=== PATIENT | male | born 1970 | race African-American/Black ===

== ENCOUNTER 2017-05-10 14:28 | Emergency (ER) | payer OTHER ==
[~2017-05-10] VITALS: Ht 175.3 cm; Wt 109.1 kg
[2017-05-10 14:33] VITALS: BP 158/101; PULSE 74; RESP 18; O2SAT 97
--- NOTE | 2017-05-10 15:15 | ED.REPORT ---
HPI-General Illness Date of Service May 10, 2017 ED Provider: Andre Boyle MD Pt is a generally healthy 47 y/o male w/ a hx of HTN and gout presenting to the ED for a medication refill. The patient recently moved to [place] from [place] and therefore has been out of his medications for the past 20 days which are: Amlodipine 10 mg and Lisinopril 40 mg. He has been on these medications for 3 years. He is asymptomatic at current time and has been recently. The patient is also requesting gout medications Colchicine and Allopurinol because he recently had a gout flare-up of his left elbow which is now resolved and he would like medications if he were to have another flare-up. Nursing Notes Stated Complaint: MED REFILL Chief Complaint: General Complaint Nursing Notes Reviewed: Yes ([employer], meds not reconciled) Allergies: Coded Allergies: No Known Allergies (Unverified , 05/10/17) Scheduled Allopurinol (Allopurinol) 100 Mg Tablet 100 MG PO DAILY Amlodipine (Amlodipine) 10 Mg Tablet 10 MG PO DAILY Lisinopril (Lisinopril) 40 Mg Tablet 40 MG PO DAILY Scheduled PRN Colchicine (Colchicine) 0.6 Mg Tablet 0.6 MG PO DIRECTED PRN PRN gout At onset of gout flare: Take 2 tabs 1, then take 1 tab one hour later. Do not take any additional colchicine for the next 3 days General Time Seen by MD: 15:10 Chief Complaint Other (med refill) Hx Obtained From: Patient Arrived By: Walk-in Sudden in Onset?: No Onset Occurred: More than a week ago... (3 weeks) Symptom Duration: Since onset Severity: Current: No pain currently Severity: Maximum: No pain Recent Healthcare: No recent doctor visit, No recent hospitalization Similar Sx Previous: No Past Medical History Past Medical History HTN Gout Past Surgical History Denies Smoking History Never Smoker Social History Drug Use: Denies drug use Ambulatory Status Independent Review of Systems Asymptomatic Full Review of Systems Constitutional: Denies: Chills, Fever Respiratory: Denies: Non-productive cough, Shortness of breath Cardiovascular: Denies: Chest pain, Dyspnea on exertion GI: Denies: Abdominal pain, Nausea, Vomiting Neurologic: Denies: Headache, Lightheaded Complete sys rev & neg: except as marked. Physical Exam Vital Signs Vital Signs Date Time Temp Pulse Resp B/P Pulse Ox O2 Delivery O2 Flow Rate FiO2 05/10/17 14:33 35.9 74 18 158/101 97 Room Air Initial VS: Reviewed, Vital signs normal (HTN) Head / Eyes: Atraumatic, Normocephalic, PERRL ENT: Mucous membranes moist, Conjunctiva normal, No scleral icterus Neck: Supple, Full range of motion Respiratory: Breath sounds normal, Clear to auscultation, No respiratory distress Cardiovascular: Regular rate & rhythm, Heart sounds normal, Intact distal pulses Abdomen / GI: Soft, Non-tender Extremities: Vascular intact, Neuro intact, No swelling, No tenderness Skin: Warm, Dry, No cyanosis Neurologic: Alert, Oriented, Nonfocal Psychiatric: Mood/affect normal, Behavior normal, Normal thought content General/Constitutional: Awake, Alert, No acute distress, Cooperative, Not toxic appearing Re-Eval/Medical Decision Med Decision/Clinical Course This is a 47-year-old male presents with request for medication refill. Just moved to the area, he has been out of his blood pressure medications for the past 15 days, it is looking simply get a refill of them. He has no specific complaints. He would also like a refill of his gout medications as he just completed a resolution of a gout exacerbation, but he would like some allopurinol and colchicine as he occasionally has flareups. He has no additional complaints. She has been on these medications for years, with no difficulties. On his exam he is mildly hypertensive, but otherwise has a normal exam. I have written for medication refill of his medications. I have also provided referral to the local on-call PCP, and records indicate [facility]. Patient is discharged in stable condition Source of Hx: Old records (none in EMR) Time of Eval: 15:17 Re-Evaluation/Progress Note: Pt is grateful I am able to prescribe his medications. Differential Diagnosis: Positive: Medication refill, Negative: Abdominal pain, Acute coronary syndrome, Cellulitis, Malingering, Pneumonia, Syncope Counseled Regarding: Diagnosis, Need for follow-up, When/why to return to ED Discharge & Departure Primary Impression: Medication refill Additional Impression: HTN (hypertension) Hypertension type: essential hypertension Qualified Code: I10 - Essential ( primary) hypertension Disposition: Home Discharge Condition All VS Reviewed: Yes Condition: Stable Additional Instructions: 1. I written a refill of her routine high blood pressure medications. 2. I have also written a prescription for her gout medications. 3. You do need to have a local primary care physician can follow her blood pressures and manage her medications. You can follow-up the [place] [facility], or you can follow up with Dr. Zhang. Call for an appointment. Referrals: [facility] (PCP) Betty Attestation Portions of this note were transcribed by Vince Price. I, Dr. Boyle personally performed the history, physical exam and medical decision-making; I reviewed and confirmed the accuracy of the information in the transcribed note. Signed by Betty Riojas, 05/10/17 - [id number] copies to: [facility] Andre Boyle MD May 10, 2017 15:15 VINCE PRICE May 10, 2017 15:24
[2017-05-10] MEDS ORDERED: LISI40TA PO (15:18)
[2017-05-10] MEDS ORDERED: ZYL100 PO (15:18)
[2017-05-10] MEDS ORDERED: AMLO10TA3 PO (15:18)
[2017-05-10] MEDS ORDERED: COLC0.6T55 PO (15:19)
== END 2017-05-10 15:33 | disposition home or self-care (01) ==
LOC: SED 14:28
DX: Z76.0 Encounter for issue of repeat prescription (principal); I10 Essential (primary) hypertension; M1A.9XX0 Chronic gout, unspecified, without tophus (tophi)

== ENCOUNTER 2017-06-04 17:28 | Emergency (ER) | payer OTHER ==
[~2017-06-04] VITALS: Ht 175.3 cm; Wt 113.6 kg
[~2017-06-04 17:28] MED LIST: AMLO10TA3 PO; COLC0.6T55 PO; LISI40TA PO; ZYL100 PO
[2017-06-04 17:32] VITALS: BP 136/90; PULSE 94; RESP 16; O2SAT 97
--- NOTE | 2017-06-04 18:37 | ED.REPORT ---
HPI-Extremity Problem Lower Date of Service Jun 04, 2017 ED Provider: Dr. Amador 47 y/o male with a hx of HTN and gout presents to the ED complaining of gout flare up on both feet, onset a few days ago. The pt reports gout at the base of the big left toe and near the heel of the right foot. He states Prednisone typically resolves his sx. He is not taking allopurinol. Is in process of moving here from the [facility], has no pcp. Nursing Notes Stated Complaint: POSSIBLE GOUT FLARE UP Chief Complaint: Extremity Trauma Nursing Notes Reviewed: Yes Allergies: Coded Allergies: No Known Allergies (Unverified , 06/04/17) Scheduled Allopurinol (Allopurinol) 100 Mg Tablet 100 MG PO DAILY Allopurinol (Allopurinol) 300 Mg Tablet 300 MG PO DAILY Amlodipine (Amlodipine) 10 Mg Tablet 10 MG PO DAILY Lisinopril (Lisinopril) 40 Mg Tablet 40 MG PO DAILY Prednisone (PredniSONE) 20 Mg Tablet 40 MG PO DAILY Scheduled PRN Colchicine (Colchicine) 0.6 Mg Tablet 0.6 MG PO DIRECTED PRN PRN gout At onset of gout flare: Take 2 tabs 1, then take 1 tab one hour later. Do not take any additional colchicine for the next 3 days General Time Seen by MD: 18:37 Chief Complaint Other (gout) Hx Obtained From: Patient Arrived By: Walk-in Onset Occurred: 3 days ago Symptom Duration: Since onset Location: : Foot left: Foot right Quality: Pleuritic Severity: Current: Moderate Severity: Maximum: Moderate Recent Healthcare: No recent doctor visit Similar Sx Previous: Yes Past Medical History Past Medical History HTN Gout Past Surgical History Denies Smoking History Never Smoker Social History Drug Use: Denies drug use Ambulatory Status Independent Review of Systems Reports previous gout in the base of the left thumb and heel on the right thumb Musculoskeletal: Reports: Extremity pain (both feet) Complete sys rev & neg: except as marked. Physical Exam Initial Vital Signs Vital Signs (First) Date Time Temp Pulse Resp B/P Pulse Ox O2 Delivery O2 Flow Rate FiO2 06/04/17 17:32 36.4 94 16 136/90 97 Room Air Initial VS: Reviewed Head / Eyes: Atraumatic, Normocephalic Neck: Supple, Non-tender, Full range of motion Respiratory: No respiratory distress Cardiovascular: Regular rate & rhythm, Intact distal pulses Upper Extremities: Vascular intact, Neuro intact, No swelling, No tenderness Skin: Warm, Dry, No cyanosis Neurologic: Alert, Oriented, Nonfocal Lower Extremity / Pelvis / MS: Atraumatic, Full range of motion, No deformity, Neurologic intact, Vascular intact Ankle / Foot: Full range of motion, Neurologic intact, Vascular intact Left Foot: Positive: Erythema present (on 1st MTP joint), Swelling present... ( Moderate; 1st MTP joint), Tenderness present... (Moderate; 1st MTP joint) General/Constitutional: Awake, Alert, Cooperative Re-Eval/Medical Decision Re-Evaluation/Progress : Time of Eval: 18:42 Re-Evaluation/Progress Note: Rechecked pt. Discussed diagnosis and plan to discharge. Pt understands and agrees with the plan. F/U instructions and RTER warning given. All questions addressed. 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 As a preventative measure, it may be helpful to cut down on meat and alcohol. Take Prednisone and Allopurinol as prescribed. Follow up with a primary care provider at [facility] for further evaluation Return to the emergency department in case of new or worsening symptoms. Referrals: [facility] Scribe Attestation Portions of this note were transcribed by Adrienne Valdovinos. I, , personally performed the history, physical exam and medical decision- making;I reviewed and confirmed the accuracy of the information in the transcribed note. Signed by Betty Cabrera. 06/04/17 20:05 copies to: [facility] Reza Amador DO Jun 04, 2017 18:37 Adrienne Valdovinos Jun 04, 2017 19:05
[2017-06-04] MEDS ORDERED: ALLO300T2 PO (19:22)
[2017-06-04] MEDS ORDERED: PRE20 PO (19:22)
[2017-06-04 19:32] VITALS: BP 140/91; PULSE 72; RESP 20; O2SAT 97
== END 2017-06-04 19:33 | disposition home or self-care (01) ==
LOC: SED 17:28
DX: M1A.0720 Idiopathic chronic gout, left ankle and foot, without tophus (tophi) (principal); I10 Essential (primary) hypertension